=== PATIENT | male | born 1975 | race Caucasian/White ===

== ENCOUNTER 2017-05-08 15:32 | Emergency (ER) | payer OTHER ==
--- NOTE | 2017-05-08 15:50 | PDOC ---
History of Present Illness <Telma Covington - Last Filed: 05/08/17 17:17> - General History Source: Patient, Correction Records, Old Records, Primary Care Provider Exam Limitations: No Limitations - History of Present Illness Initial Comments: 05/08/17 17:36 The patient is a 42 year old male, with significant past medical history of Asthma, GERD, COPD, Adjustment disorder, Atopic dermatitis, Contact disorder, Constipation who presents to the emergency department sent in by [facility] with 2 PC paperwork. As per [place] records, patient has been overly aggressive and verbally abusive to nursing staff. Subsequently, patient was sent to [facility] ER for psych evaluation. Patient was cleared and was sent back to [facility]. Patients behavior worsened and staff were highly concerned. Patient was sent to [facility] with an accepting physician however came to [facility] ED. Patient present with 2PC paperwork. Upon evaluation, patients vital signs are within normal limits. Patient is currently agitated and has flight of ideas. Attempted to obtain paperwork and psych consult from [facility] in [facility]. Medical records requesting release of information form however patient is refusing to sign. Patient denies HI or SI. He denies chest pain, headache or dizziness. He denies fever, chills, abdominal pain, nausea, vomit, diarrhea or constipation. He denies dysuria, frequency, urgency or hematuria. Patient denies sick contacts or recent travel. <Anamaria Chakraborty - Last Filed: 05/08/17 18:36> - General Stated Complaint: PSYCHIATRIC Time Seen by Provider: 05/08/17 15:49 Past History <Telma Covington - Last Filed: 05/08/17 17:17> <Anamaria Chakraborty - Last Filed: 05/08/17 18:36> - Past Medical History Allergies/Adverse Reactions: Allergies Allergy/AdvReac Type Severity Reaction Status Date / Time No Known Allergies Allergy Verified 05/08/17 16:27 Home Medications: Ambulatory Orders Unobtainable [Unobtainable] 05/08/17 Review of Systems - Review of Systems All Other Systems: Reviewed and Negative <Anamaria Chakraborty - Last Filed: 05/08/17 18:36> *Physical Exam - Vital Signs Last Vital Signs Temp Pulse Resp BP Pulse Ox 98.3 F 86 18 100/70 100 05/08/17 16:01 05/08/17 16:01 05/08/17 16:01 05/08/17 16:01 05/08/17 16:01 - Physical Exam Comments: 05/08/17 17:36 GENERAL: Awake, alert, and fully oriented, in no acute distress. +Disheveled. HEAD: No signs of trauma EYES: PERRLA, EOMI, sclera anicteric, conjunctiva clear ENT: +Poor dentition. Auricles normal inspection, hearing grossly normal, nares patent, oropharynx clear without exudates. Moist mucosa NECK: Normal ROM, supple, no lymphadenopathy, JVD, or masses LUNGS: Breath sounds equal, clear to auscultation bilaterally. No wheezes, and no crackles HEART: Regular rate and rhythm, normal S1 and S2, no murmurs, rubs or gallops ABDOMEN: Soft, nontender, normoactive bowel sounds. No guarding, no rebound. No masses EXTREMITIES: Normal range of motion, no edema. No clubbing or cyanosis. No cords, erythema, or tenderness NEUROLOGICAL: Cranial nerves II through XII grossly intact. Normal speech, normal gait SKIN: Warm, Dry, normal turgor, no rashes or lesions noted. <Anamaria Chakraborty - Last Filed: 05/08/17 18:36> Medical Decision Making - Medical Decision Making 05/08/17 17:17 a/p: 42yo male presents rom [facility] with 2PC paperwork (dated 05/07/17) stating the patient needs psychiatric eval -pt denies SI/HI. -documented that the patient was being verbally aggressive towards staff and other members at the rehab facility. -pt was transferred yesterday to [facility] for eval by psych - apparently cleared by psych last night (attempted to obtain records from psych eval at [facility], but patient refused to sign release of information paperwork to obtain records from [facility]) -call to [facility] - pt was supposed to be transferred to [facility] for psych eval by Dr. Hoffman. -call placed to Dr. Tiki Hoffman who agrees the patient was supposed to be transferred to [facility] for psychiatric evaluation. Dr. Hoffman accepts the patient in transfer to [facility]. -transportation arranged for patient to be transferred to [facility] for further psych eval. <Telma Covington - Last Filed: 05/08/17 17:17> - Medical Decision Making 05/08/17 16:34- Contacted [facility] Psych ED for copy of psych consult 05/08/17 17:00-- Patient's records were unobtainable due to the patient's refusal to sign [facility] form. 05/08/17 17:10-- Contacted receiving physician at [facility] in [place]. Discussed case with Dr. Hoffman Physician accepts case and Physician's name: Dr. Hoffman [phone] 05/08/17 17:15-- Decision made to transfer patient to [facility] <Anamaria Chakraborty - Last Filed: 05/08/17 18:36> *DC/Admit/Observation/Transfer - Transfer to Acute Care Facility Receiving Facility: [facility] Accepting Physician:: Dr. Tiki Hoffman - Attestations Physician Attestion: 05/08/17 17:10 I, Dr. Telma Covington, DO, attest that this document has been prepared under my direction and personally reviewed by me in its entirety. I further attest, that it accurately reflects all work, treatment, procedures and medical decision -making performed by me. <Telma Covington - Last Filed: 05/08/17 17:17> <Anamaria Chakraborty - Last Filed: 05/08/17 18:36> Diagnosis at time of Disposition: Aggression - Discharge Dispostion Disposition: TRANSFER ACUTE CARE/OTHER HOSP Condition at time of disposition: Fair
[2017-05-08 16:26] VITALS: BMI 22.0
[2017-05-08 17:32] VITALS: BP 100/72; PULSE 96; TEMP 97.4
== END 2017-05-08 18:20 | disposition short-term general hospital (02) ==
LOC: JER 15:32
DX: F91.8 Other conduct disorders (principal); J45.909 Unspecified asthma, uncomplicated; K21.9 Gastro-esophageal reflux disease without esophagitis; K59.00 Constipation, unspecified; F43.24 Adjustment disorder with disturbance of conduct
CPT/HCPCS: 99281-25